=== PATIENT | male | born 1965 | race Caucasian/White ===

== ENCOUNTER → 2022-05-26 09:40 | Outpatient (CLI) | payer OTHER, SELFPAY ==
[2022-05-26 20:03] LABS: Cholesterol 166 mg/dL (140-199); HDL Cholesterol 49 mg/dL (40-60); LDL Cholesterol Calculated 95 mg/dL (<100); Triglycerides 111 mg/dL (35-150)
== END ==
PROVIDERS: Family Provider Family Medicine; PCP Family Medicine; Visit Provider Family Medicine
DX: E78.00 Pure hypercholesterolemia, unspecified (principal)
CPT/HCPCS: 80061

== ENCOUNTER → 2025-06-27 08:41 | Outpatient (CLI) | payer OTHER, SELFPAY ==
--- NOTE | 2025-06-27 08:42 | DI.MRI.S_ITS ---
PROCEDURE: MR FEMUR LT WO/W CON INDICATIONS: 4x4cm soft tissue mass left inner thigh with swelling distal TECHNIQUE: Noncontrast coronal T1 spin echo and STIR, sagittal T1 spin echo with fat saturation and STIR, axial T1 spin echo and T2 fast spin echo with fat saturation. After the administration of contrast, axial/sagittal/coronal T1 spin echo with fat saturation through the left thigh. COMPARISON: None. FINDINGS: * Within the vastus medialis at the medial left upper leg there is a 2.2 x 1.4 x 2.5 cm entirely fatty lesion with no enhancement. * * No lymphadenopathy. No marrow replacing osseous lesion. * * No bone marrow edema. No muscle edema. No tendon tear. * * Nerves and vessels are unremarkable. 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 Dictated by: Arsenio Richards M.D. on 06/27/2025 at 13:11 Approved by: Arsenio Richards M.D. on 06/27/2025 at 13:15
== END ==
LOC: MRI 08:42
PROVIDERS: PCP Family Medicine; Referring Provider Family Medicine; Visit Provider Family Medicine
DX: R22.42 Localized swelling, mass and lump, left lower limb (principal)
CPT/HCPCS: 73720; A9579